=== PATIENT | female | born 1950 | race Caucasian/White ===

== ENCOUNTER → 2021-06-23 | Outpatient (CLI) | payer MEDICARE, OTHER | LOC: EXRD 13:57 | DX: R79.89 Other specified abnormal findings of blood chemistry (principal) | CPT/HCPCS: 76775 ==

== ENCOUNTER → 2021-08-12 | Outpatient (CLI) | payer MEDICARE, OTHER | LOC: KOH-I 08:29 | DX: M25.561 Pain in right knee (principal) | CPT/HCPCS: 73560 ==

== ENCOUNTER 2021-09-26 12:13 | Emergency (ER) | payer MEDICARE, OTHER ==
[2021-09-26 14:15] LABS: HEMOGLOBIN 16.4 gm/dl (12.3-15.3); WHITE BLOOD COUNT 8.4 K/UL (4.5-11.0)
[2021-09-26] MEDS ORDERED: CYCLOBENZAPRINE10 MG PO (14:55)
[2021-09-26] MEDS ORDERED: MEDROL DOSEPAK 24 MG PO (14:55)
== END 2021-09-26 15:05 | disposition home or self-care (01) ==
LOC: ER1 12:13
PROVIDERS: Physician Assistant
DX: R10.32 Left lower quadrant pain (principal); M54.9 Dorsalgia, unspecified; E78.5 Hyperlipidemia, unspecified; I10 Essential (primary) hypertension; Z88.0 Allergy status to penicillin
CPT/HCPCS: 80053; 81001; 85025; 99284

== ENCOUNTER 2022-05-07 10:37 | Emergency (ER) | payer MEDICARE, OTHER ==
[~2022-05-07 10:37] MED LIST: CYCLOBENZAPRINE10 MG PO; MEDROL DOSEPAK 24 MG PO
[2022-05-07] MEDS ORDERED: MEDROL DOSEPAK 24 MG PO (12:47)
[2022-05-07] MEDS ORDERED: TYLENOL325 M1 PO (12:47)
[2022-05-07] MEDS ORDERED: ZOFRAN 4 MG TAB4 MG PO (12:47)
== END 2022-05-07 13:04 | disposition home or self-care (01) ==
LOC: ER1 10:37
DX: U07.1 COVID-19 (principal); I10 Essential (primary) hypertension; Z88.0 Allergy status to penicillin
CPT/HCPCS: 0240U; 99284